=== PATIENT | male | born 1995 | race Asian ===

== ENCOUNTER 2017-04-13 11:41 | Emergency (ER) | payer SELFPAY ==
[~2017-04-13] VITALS: Ht 172.7 cm; Wt 72.7 kg
[2017-04-13 11:46] VITALS: Ht 172.7 cm; Wt 72.7 kg
[2017-04-13 12:44] LABS: BASO % 0.8 %; BASO ABS # 0.03 K/uL (0-0.2); BUN/CREATININE RATIO 16.4 (10-20); CALCIUM 9.3 mg/dl (8.5-10.1); CREATININE 1.12 mg/dl (0.60-1.40); EOS % 6.1 %; HEMATOCRIT 42.2 % (42-52); IG% 0.3 %; LYMPH % 28.8 %; LYMPH ABS # 1.13 K/uL (1.2-3.4); MEAN CELL VOLUME 89.4 fL (80-100); MEAN CORPUSCULAR HEMOGLOBIN 29.9 pg (25-34); MONO % 4.8 %; NEUT % 59.2 %; POTASSIUM 4.2 mmol/L (3.5-5.1); RED BLOOD COUNT 4.72 M/uL (4.7-6.1); WHITE BLOOD COUNT 3.93 K/uL (4.8-10.8)
--- NOTE | 2017-04-13 12:44 | DIAGNOSTIC IMAGING REPORT ---
CHEST ONE VIEW PORTABLE HISTORY: mid sternal chest pain when swallowing COMPARISON: None. FINDINGS: The lungs are clear. Cardiac silhouette is normal in size. No pleural effusions. No pneumothorax. IMPRESSION: No acute process. Electronically signed by: Franki Daniel M.D. 04/13/2017 12:43 PM Dictated Date/Time: 04/13/2017 12:42 PM
[2017-04-13 13:08] LABS: MEAN CORPUSCULAR HGB CONC 33.4 g/dl (32-36); PLATELET COUNT 127 K/uL (130-400)
[2017-04-13 13:09] LABS: COMPLETE YES; LARGE PLATELETS 1+; PLT ESTIMATE DECREASED
--- NOTE | 2017-04-13 14:46 | DIAGNOSTIC IMAGING REPORT ---
SINGLE CONTRAST GASTROVIEW ESOPHAGRAM CLINICAL HISTORY: Midsternal chest pain with swallowing. COMPARISON STUDY: No priors. TECHNIQUE: A single contrast Gastroview esophagram is performed. Multiple spot images of the esophagus are acquired in the upright position. FINDINGS: The patient Gastroview without difficulty. The mucosal pattern is normal. There is no evidence of intrinsic or extrinsic mass lesion. No aspiration was seen. The gastroesophageal junction distended normally. No gastroesophageal reflux was observed on the acquired images. No extraluminal contrast is identified. Fluoroscopy time: 0.6 minutes. Fluoroscopic images: 6 IMPRESSION: Normal single contrast Gastroview swallow. Electronically signed by: Romario German M.D. 04/13/2017 2:45 PM Dictated Date/Time: 04/13/2017 2:34 PM
[2017-04-13] MEDS ORDERED: MBXC PO (15:38)
[2017-04-13 15:57] VITALS: BP 114/66; PULSE 44; TEMP 36.7; O2SAT 100
--- NOTE | 2017-04-13 17:18 | EMERGENCY ROOM VISIT NOTE ---
History Report prepared by Puma: Greg Garnica Under the Supervision of: Dr. Tj Villar D.O. First contact with patient: 11:51 Chief Complaint: OTHER COMPLAINT Stated Complaint: FOREIGN BODY STUCK IN ESOPHAGUS History of Present Illness The patient is a 22 year old male who presents to the Emergency Room with complaints of a possible food bolus in his esophagus. He notes that this past weekend, he ate some Cod that he is unsure if it had bones in it. A couple hours later, he noticed that he was experiencing epigastric pain with swallowing. He does not feel like anything else is getting stuck, but he feels the pain when it passes. He went to [facility] and was told to come here to get a scope procedure. He denies any chest pain, shortness of breath, nausea, vomiting , diarrhea, or abnormal urinary symptoms. He denies any medical history. He was able to eat this morning. Source of History: patient Onset: 5 days ago Position: throat Symptom Intensity: Possible Quality: other (Food Bolus) Timing: constant Associated Symptoms: No fevers, No chest pain, No SOB, No nausea, No vomiting, No diarrhea, No urinary symptoms Note: He has some epigastric pain with swallowing. Review of Systems See HPI for pertinent positives & negatives. A total of 10 systems reviewed and were otherwise negative. Past Medical & Surgical Medical Problems: (1) No Known Active Medical Problems Family History Patient reports no known family medical history. Social History Smoking Status: Never Smoker Smokeless Tobacco Use: No Alcohol Use: other (Rarely) Drug Use: none Marital Status: single Housing Status: lives alone Occupation Status: employed Current/Historical Medications Scheduled Magic Swizzle (Magic Swizzle - SUCRALFA/ALUM/MAG/DIPHEN/LIDO), 3-4 TSP PO TID Allergies Coded Allergies: No Known Allergies (Unverified , 04/13/17) Physical Exam Vital Signs Date Time Temp Pulse Resp B/P (MAP) Pulse Ox O2 Delivery O2 Flow Rate FiO2 04/13/17 15:57 36.7 44 18 114/66 100 04/13/17 15:56 44 18 114/66 100 Room Air 04/13/17 14:25 41 115/61 100 Room Air 04/13/17 13:06 39 18 110/61 100 Room Air 04/13/17 11:46 36.7 45 20 117/68 97 Room Air Physical Exam GENERAL: Sitting in bed speaking in full sentences, alert, well appearing, well nourished, no distress, non-toxic EYE EXAM: normal conjunctiva OROPHARYNX: no exudate, no erythema, lips, buccal mucosa, and tongue normal and mucous membranes are moist NECK: supple, no nuchal rigidity, no adenopathy, non-tender LUNGS: Clear to auscultation. Normal chest wall mechanics HEART: no murmurs, S1 normal and S2 normal ABDOMEN: abdomen soft, non-tender, normo-active bowel sounds, no masses, no rebound or guarding. BACK: Back is symmetrical on inspection and there is no deformity, no midline tenderness, no CVA tenderness. SKIN: no rashes and no bruising UPPER EXTREMITIES: upper extremities are grossly normal. LOWER EXTREMITIES: No pitting edema. NEURO EXAM: Normal sensorium, cranial nerves II-XII grossly intact, normal speech, no gross weakness of arms, no gross weakness of legs. Medical Decision & Procedures ER Provider Diagnostic Interpretation: Radiology results as stated below per my review and the radiologist's interpretation: CHEST ONE VIEW PORTABLE HISTORY: mid sternal chest pain when swallowing COMPARISON: None. FINDINGS: The lungs are clear. Cardiac silhouette is normal in size. No pleural effusions. No pneumothorax. IMPRESSION: No acute process. Electronically signed by: Franki Daniel M.D. 04/13/2017 12:43 PM Dictated Date/Time: 04/13/2017 12:42 PM SINGLE CONTRAST GASTROVIEW ESOPHAGRAM CLINICAL HISTORY: Midsternal chest pain with swallowing. COMPARISON STUDY: No priors. TECHNIQUE: A single contrast Gastroview esophagram is performed. Multiple spot images of the esophagus are acquired in the upright position. FINDINGS: The patient Gastroview without difficulty. The mucosal pattern is normal. There is no evidence of intrinsic or extrinsic mass lesion. No aspiration was seen. The gastroesophageal junction distended normally. No gastroesophageal reflux was observed on the acquired images. No extraluminal contrast is identified. Fluoroscopy time: 0.6 minutes. Fluoroscopic images: 6 IMPRESSION: Normal single contrast Gastroview swallow. Electronically signed by: Romario German M.D. 04/13/2017 2:45 PM Dictated Date/Time: 04/13/2017 2:34 PM Laboratory Results 04/13/17 12:15 Red Blood Count 4.72, Mean Corpuscular Volume 89.4, Mean Corpuscular Hemoglobin 29.9, Mean Corpuscular Hemoglobin Concent 33.4, Mean Platelet Volume 12.0, Neutrophils (%) (Auto) 59.2, Lymphocytes (%) (Auto) 28.8, Monocytes (%) (Auto) 4.8, Eosinophils (%) (Auto) 6.1, Basophils (%) (Auto) 0.8, Neutrophils # (Auto) 2.33, Lymphocytes # (Auto) 1.13, Monocytes # (Auto) 0.19, Eosinophils # (Auto) 0.24, Basophils # (Auto) 0.03 04/13/17 12:15 Test 04/13/17 12:15 White Blood Count 3.93 K/uL (4.8-10.8) Red Blood Count 4.72 M/uL (4.7-6.1) Hemoglobin 14.1 g/dL (14.0-18.0) Hematocrit 42.2 % (42-52) Mean Corpuscular Volume 89.4 fL (80-100) Mean Corpuscular Hemoglobin 29.9 pg (25-34) Mean Corpuscular Hemoglobin Concent 33.4 g/dl (32-36) Platelet Count 127 K/uL (130-400) Mean Platelet Volume 12.0 fL (7.4-10.4) Neutrophils (%) (Auto) 59.2 % Lymphocytes (%) (Auto) 28.8 % Monocytes (%) (Auto) 4.8 % Eosinophils (%) (Auto) 6.1 % Basophils (%) (Auto) 0.8 % Neutrophils # (Auto) 2.33 K/uL (1.4-6.5) Lymphocytes # (Auto) 1.13 K/uL (1.2-3.4) Monocytes # (Auto) 0.19 K/uL (0.11-0.59) Eosinophils # (Auto) 0.24 K/uL (0-0.5) Basophils # (Auto) 0.03 K/uL (0-0.2) RDW Standard Deviation 41.6 fL (36.4-46.3) RDW Coefficient of Variation 12.7 % (11.5-14.5) Immature Granulocyte % (Auto) 0.3 % Immature Granulocyte # (Auto) 0.01 K/uL (0.00-0.02) Platelet Estimate DECREASED Large Platelets 1+ Anion Gap 6.0 mmol/L (3-11) Est Creatinine Clear Calc Drug Dose 98.4 ml/min Estimated GFR () 106.0 Estimated GFR (Non- 91.5 BUN/Creatinine Ratio 16.4 (10-20) Calcium Level 9.3 mg/dl (8.5-10.1) Troponin I < 0.015 ng/ml (0-0.045) Laboratory results per my review. ECG Indication: other (Foreign Body) Rate (beats per minute): 40 Rhythm: sinus bradycardia Findings: other (Normal axis, j-point elevation laterally) ED Course ED COURSE: Vital signs were reviewed and showed normal vitals. The patients medical record was reviewed The above diagnostic studies were performed and reviewed. ED treatments and interventions as stated above. 1151: The patient was evaluated in room A10. A complete history and physical examination was performed. 1321: I spoke with Dr. Winters of Gastroenterology at this time. Please see the consult note below. 1530: The patient does not want to stay as an inpatient or be treated else where. He would like to go home. 1533: I spoke with Dr. Winters again. He recommended Magic Mouth Wash and discharge. 1552: Upon reevaluation, the patient is resting. I discussed my findings with the patient and he understands and agrees with the treatment plan. Based on the patients age, coexisting illnesses, exam and lab findings the decision to treat as an outpatient was made. The patient remained stable while under my care. The patient appeared well at the time of discharge. Medical Decision Differential diagnoses includes but is not limited to acute coronary syndrome, myocardial infarction, pericarditis, pulmonary embolus, aortic dissection, pneumonia, pneumothorax, musculoskeletal, shingles, esophageal. Patient is a 22-year-old male who presents to ER for pain with swallowing which started on Monday. Patient notes she was eating a lot of cod on Monday and Monday. CBC all BMP and troponin was negative. EKG shows bradycardia with J- point elevation. He has no chest pain or shortness of breath. He is extremely active. I do not believe that this is cardiac. Discussed with GI and they recommended Gastrografin swallow. Swallow is negative. They were agreeable to scoping him at 12 PM tonight or admitting him and scoping him tomorrow. He declined. He notes he will follow-up as an outpatient. Risk and benefits were explained. Patient was discharged follow-up with GI on Monday or Monday. Discussed with Pt concerning signs and symptoms to watch out for. Pt was instructed to follow up with their PCP and discussed with the patient their option to return to the ED at anytime for persistent or worsening symptoms. The appropriate anticipatory guidance and out-patient management, including indications for return to the emergency department, were explained at length to the patient and understood. Medication Reconcilliation Current Medication List: was personally reviewed by me Blood Pressure Screening Patient's blood pressure: Normal blood pressure Blood pressure disposition: Did not require urgent referral Consults Time Called: 1320 Consulting Physician: Dr. Singh Leonard Gastroentervictor hugo Returned Call: 1321 We discussed the patient's case. They recommended an esophageal x-ray. Additional Consults: Time Called: 1530 Consulted Physician: Dr. Singh Lubin Returned Call: [phone] Additional Comments: He recommended Magic Mouth Wash and discharge. Impression Primary Impression: Foreign body in esophagus Scribe Attestation The scribe's documentation has been prepared under my direction and personally reviewed by me in its entirety. I confirm that the note above accurately reflects all work, treatment, procedures, and medical decision making performed by me. Departure Information Dispostion Home / Self-Care Prescriptions Magic Swizzle (Magic Swizzle - SUCRALFA/ALUM/MAG/DIPHEN/LIDO) 240 Ml Susp 3-4 TSP PO TID for meals, #240 ML 100ml Sucralfate 50ml Maalox 50ml Diphenhydramine 40ml 2% Aq. Lidocaine Swish and Swallow Prov: Tj Villar, 04/13/17 Referrals Romulo Winters M.D. [facility] Forms HOME CARE DOCUMENTATION FORM, IMPORTANT VISIT INFORMATION, WORK / SCHOOL INSTRUCTIONS Patient Instructions ED Foreign Body Esophageal Rslv, My [facility] Additional Instructions Please follow up with your primary care doctor or if you are a student, [facility] with in the next 24 hours. Any worsening of your symptoms, please return to the ED immediately. This includes any fevers greater than 100.4, worsening pain, chest pain, shortness breath, persistent nausea, vomiting, unable to eat or drink, or any other concerning signs or symptoms from your standpoint. Patient refrain from acidic foods. Please call GI and follow-up within 24 hours. Problem Qualifiers Primary Impression: Foreign body in esophagus Encounter type: initial encounter Qualified Codes: T18.108A - Unspecified foreign body in esophagus causing other injury, initial encounter
== END 2017-04-13 15:58 | disposition home or self-care (01) ==
LOC: C.EDB 11:45 → C.EDA 15:58
DX: T18.108A Unspecified foreign body in esophagus causing other injury, initial encounter (principal); X58.XXXA Exposure to other specified factors, initial encounter